=== PATIENT | male | born 2005 | race Caucasian/White ===

== ENCOUNTER 2025-05-13 18:32 | Emergency (ER) | payer OTHER ==
[~2025-05-13] VITALS: Ht 170.2 cm; Wt 91.0 kg
[2025-05-13 18:55] VITALS: O2SAT 97
[2025-05-13] MEDS ORDERED: IBUP-2028 MT (22:09)
[2025-05-13 22:13] VITALS: BP 130/62; PULSE 67; RESP 18; TEMP 36.7; O2SAT 97
== END 2025-05-13 22:17 | disposition home or self-care (01) ==
LOC: ER 18:32
DX: S30.22XA Contusion of scrotum and testes, initial encounter (principal); J45.909 Unspecified asthma, uncomplicated; W22.8XXA Striking against or struck by other objects, initial encounter; Y93.89 Activity, other specified; Y92.89 Other specified places as the place of occurrence of the external cause; Y99.8 Other external cause status
CPT/HCPCS: 76870; 93976; 99284